=== PATIENT | male | born 1965 | race Caucasian/White ===

== ENCOUNTER 2016-12-21 10:54 | Emergency (ER) | payer BC ==
[2016-12-21] MEDS ORDERED: FLEXERIL10 MG PO (10:57)
[2016-12-21] MEDS ORDERED: BACLOFEN10 MG PO (10:57)
[2016-12-21] MEDS ORDERED: AMLODIPINE-BEN1 EACH PO (10:58)
[2016-12-21] MEDS ORDERED: ZYRTEC10 M1 PO (10:58)
[2016-12-21] MEDS ORDERED: SINGULAIR PO (10:58)
== END 2016-12-21 11:51 | disposition home or self-care (01) ==
LOC: SED 10:54
DX: M54.42 Lumbago with sciatica, left side (principal); Z79.899 Other long term (current) drug therapy
CPT/HCPCS: 96372; 99283; J1885